=== PATIENT | male | born 2000 | race Caucasian/White ===

== ENCOUNTER 2022-02-10 18:32 | Emergency (ER) | payer OTHER ==
[2022-02-10] MEDS ORDERED: Ibuprofen 800 MG TAB ONE (20:09)
== END 2022-02-10 21:39 | disposition home or self-care (01) ==
LOC: ERS 18:32
DX: S82.54XA Nondisplaced fracture of medial malleolus of right tibia, initial encounter for closed fracture (principal); X50.1XXA Overexertion from prolonged static or awkward postures, initial encounter